=== PATIENT | male | born 1960 | race Caucasian/White ===

== ENCOUNTER → 2024-06-11 07:47 | Outpatient (CLI) | payer MEDICARE, OTHER, SELFPAY ==
[2024-06-11 08:53] LABS: Add Manual Diff / Slide Review NO; Basophils Absolute Auto 0 /uL (0-100); Basophils Percent Auto 0.7 % (0-2); Eosinophils Absolute Auto 100 /uL (0-450); Eosinophils Percent Auto 2.3 % (2-4); Hemoglobin 16.2 g/dL (13.5-17.5); Lymphocytes Absolute Auto 1900 /uL (1100-4500); Lymphocytes Percent Auto 32.3 % (25-40); Mean Corpuscular HGB Conc 34.4 % (30-36); Mean Corpuscular Hemoglobin 33.5 PG (26-34); Mean Corpuscular Volume 97.2 fL (80-100); Monocytes Absolute Auto 600 /uL (0-900); Monocytes Percent Auto 10.5 % (3-14); Neutrophils Absolute Auto 3200 /uL (1500-7000); Neutrophils Percent Auto 54.2 % (50-75); Platelet Count 215 X10^3/uL (150-400); Red Blood Cell Count 4.84 X10^6/uL (4.5-5.9); Red Cell Distribution Width 13.2 % (11.6-14.8); White Blood Cell Count 5.9 X10^3/uL (4.5-11.0)
[2024-06-11 09:23] LABS: Alanine Aminotransferase 14 IU/L (<50); Albumin Globulin Ratio 1.6 (1.0-2.8); Alkaline Phosphatase 90 U/L (38-126); Aspartate Aminotransferase 22 IU/L (17-59); BUN Creatinine Ratio 24.3 (6-22); Bilirubin Total 0.6 mg/dL (0.2-1.3); Blood Urea Nitrogen 27 mg/dL (9-20); Calcium 8.5 mg/dL (8.4-10.2); Carbon Dioxide 29 mmol/L (22-32); Chloride 106 mmol/L (98-107); Estimated Glomerular Filt Rate > 60 mL/min (>60); Globulin 2.5 g/dL (1.7-4.1); Glucose 112 mg/dL (80-110); HEMOLYSIS < 15 (0-50); Sodium 139 mmol/L (137-145); Total Protein 6.5 g/dL (6.3-8.2)
[2024-06-11 09:29] LABS: Potassium 5.6 mmol/L (3.4-5.1)
[2024-06-11 09:52] LABS: Prostate Specific Antigen Scrn < 0.064 ng/mL (0.1-4.0)
== END ==
LOC: LAB 07:48
PROVIDERS: PCP Family Medicine; Referring Provider Family Medicine; Visit Provider Family Medicine
DX: Z00.00 Encounter for general adult medical examination without abnormal findings (principal); I10 Essential (primary) hypertension; Z12.5 Encounter for screening for malignant neoplasm of prostate; Z85.46 Personal history of malignant neoplasm of prostate
CPT/HCPCS: 36415; 80053; 85025; G0103

== ENCOUNTER → 2024-07-14 11:46 | Outpatient (CLI) | payer MEDICARE, OTHER, SELFPAY ==
[2024-07-14 13:14] LABS: Magnesium 2.3 mg/dL (1.6-2.3)
[2024-07-14 13:40] LABS: Thyroid Stimulating Hormone 1.57 uIU/mL (0.47-4.68)
== END ==
PROVIDERS: PCP Family Medicine; Referring Provider Internal Medicine Cardiovascular Disease; Visit Provider Internal Medicine Cardiovascular Disease
DX: I49.3 Ventricular premature depolarization (principal); R00.2 Palpitations; I42.8 Other cardiomyopathies; I45.10 Unspecified right bundle-branch block; I44.4 Left anterior fascicular block; I11.0 Hypertensive heart disease with heart failure; Z13.29 Encounter for screening for other suspected endocrine disorder
CPT/HCPCS: 36415; 83735; 84443

== ENCOUNTER → 2024-10-05 07:29 | Outpatient (CLI) | payer MEDICARE, OTHER, SELFPAY ==
--- NOTE | 2024-10-05 23:38 | DI.NM.S_ITS ---
DATE OF SERVICE: 10/05/2024 EXERCISE TREADMILL STRESS TEST PROCEDURE PERFORMED: Exercise treadmill stress test without imaging. ORDERING PROVIDER: Humphrey Vasquez MD INDICATIONS: The patient is a 63-year-old male with sinus bradycardia, conduction disease, and PVCs. FINDINGS: 1. The patient was able to exercise for 8 minutes 1 second on a standard Kimani protocol suggesting fair exercise capacity with an MALIK of -4%, achieving 10.1 METS. 2. He had a normal heart rate response to exercise with a resting heart rate of 51 BPM, increasing to 86 BPM after 3 minutes of exercise, 121 BPM after 6 minute of exercise, and achieving a maximum heart rate of 152 BPM (99% of his predicted maximum). He had a normal blood pressure response to exercise. 3. He had no chest discomfort or anginal symptoms. 4. His resting ECG showed sinus rhythm with a right bundle and left anterior fascicular block but relatively normal ST segments. With stress, there are no significant ST-segment shifts. He has occasional PACs with exercise and rare PVCs, rarely in couplets, in recovery, but no other arrhythmias. IMPRESSION: 1. Normal exercise treadmill stress test for ischemia. 2. Fair exercise capacity without angina. 3. Normal chronotropic response with occasional PACs and PVCs, rarely in couplets, but no concerning arrhythmias. Valeriano Agarwal - GRAHAM/le/BROCK doc#: [id number]/job#: [id number] dd: 10/05/2024 16:21:00 dt: 10/05/2024 23:31:00 DICTATING MD/COPIES TO: Aaron Cox MD; Humphrey Vasquez MD COPIES MNE: SHY
== END ==
LOC: RAD 07:29
PROVIDERS: PCP Family Medicine; Referring Provider Internal Medicine Cardiovascular Disease; Visit Provider Internal Medicine Cardiovascular Disease
DX: I49.3 Ventricular premature depolarization (principal); I45.10 Unspecified right bundle-branch block; I44.4 Left anterior fascicular block
CPT/HCPCS: 93017

== ENCOUNTER → 2025-01-14 07:21 | Outpatient (CLI) | payer MEDICARE, OTHER, SELFPAY ==
[2025-01-14 08:34] LABS: Alanine Aminotransferase 19 IU/L (<50); Albumin 4.4 g/dL (3.5-5.0); Albumin Globulin Ratio 1.8 (1.0-2.8); Alkaline Phosphatase 58 U/L (38-126); Aspartate Aminotransferase 27 IU/L (17-59); BUN Creatinine Ratio 18.9 (6-22); Bilirubin Total 1.3 mg/dL (0.2-1.3); Blood Urea Nitrogen 23 mg/dL (9-20); Calcium 9.1 mg/dL (8.4-10.2); Carbon Dioxide 29 mmol/L (22-32); Chloride 103 mmol/L (98-107); Cholesterol 161 mg/dL (140-199); Estimated Glomerular Filt Rate > 60 mL/min (>60); Globulin 2.4 g/dL (1.7-4.1); Glucose 99 mg/dL (80-110); HDL Cholesterol 70 mg/dL (40-60); HEMOLYSIS 25 (0-50); LDL Cholesterol Calculated 70 mg/dL (<100); Potassium 4.2 mmol/L (3.4-5.1); Sodium 137 mmol/L (137-145); Total Protein 6.8 g/dL (6.3-8.2); Triglycerides 106 mg/dL (35-150)
[2025-01-15 07:09] LABS: PSA Ultrasensitive <0.006 ng/mL (0.000-4.000)
== END ==
PROVIDERS: PCP Family Medicine; Referring Provider Nurse Practitioner Acute Care; Visit Provider Nurse Practitioner Acute Care
DX: I10 Essential (primary) hypertension (principal); C61 Malignant neoplasm of prostate; Z85.46 Personal history of malignant neoplasm of prostate
CPT/HCPCS: 36415; 80053; 80061; 84153

== ENCOUNTER → 2025-07-02 07:47 | Outpatient (CLI) | payer MEDICARE, OTHER, SELFPAY ==
[2025-07-02 08:20] LABS: Add Manual Diff / Slide Review NO; Hematocrit 47.6 % (41-53); Hemoglobin 16.7 g/dL (13.5-17.5); Lymphocytes Absolute Auto 2100 /uL (1100-4500); Mean Corpuscular HGB Conc 35.1 % (30-36); Mean Corpuscular Hemoglobin 33.8 PG (26-34); Mean Corpuscular Volume 96.6 fL (80-100); Platelet Count 204 X10^3/uL (150-400)
[2025-07-02 09:04] LABS: Alanine Aminotransferase 15 IU/L (<50); Albumin 4.5 g/dL (3.5-5.0); Albumin Globulin Ratio 1.9 (1.0-2.8); Alkaline Phosphatase 69 U/L (38-126); Blood Urea Nitrogen 22 mg/dL (9-20); Calcium 9.3 mg/dL (8.4-10.2); Carbon Dioxide 23 mmol/L (22-32); Chloride 105 mmol/L (98-107); Estimated Glomerular Filt Rate > 60 mL/min (>60); Globulin 2.4 g/dL (1.7-4.1); Glucose 117 mg/dL (70-99); HEMOLYSIS < 15 (0-50); Potassium 4.4 mmol/L (3.4-5.1); Sodium 137 mmol/L (137-145); Total Protein 6.9 g/dL (6.3-8.2)
[2025-07-02 09:29] LABS: TSH w/ Reflex to FT4 2.41 uIU/mL (0.47-4.68)
== END ==
PROVIDERS: PCP Family Medicine; Referring Provider Family Medicine; Visit Provider Family Medicine
DX: I10 Essential (primary) hypertension (principal); Z83.3 Family history of diabetes mellitus; C61 Malignant neoplasm of prostate; Z85.46 Personal history of malignant neoplasm of prostate
CPT/HCPCS: 36415; 80053; 84153; 84443; 85025